=== PATIENT | male | born 1980 | race Caucasian/White ===

== ENCOUNTER 2016-12-27 18:07 | Emergency (ER) | payer MEDICAID ==
[~2016-12-27] VITALS: Ht 175.3 cm; Wt 73.0 kg
[2016-12-27 18:31] VITALS: BP 150/82
== END 2016-12-27 22:06 | disposition home or self-care (01) ==
LOC: ED 18:07
DX: S61.305A Unspecified open wound of left ring finger with damage to nail, initial encounter (principal); R03.0 Elevated blood-pressure reading, without diagnosis of hypertension; W45.8XXA Other foreign body or object entering through skin, initial encounter; Y93.89 Activity, other specified; Y99.8 Other external cause status; Y92.89 Other specified places as the place of occurrence of the external cause
CPT/HCPCS: 90715; J0690; J2001; J3490; Q0092